=== PATIENT | male | born 1955 ===

== ENCOUNTER 2018-11-14 09:06 | Emergency (ER) | payer OTHER ==
--- NOTE | 2018-11-14 09:40 | C.PDOC ---
History Of Present Illness CC: RA HPI: Patient is a 63 year old male with no past medical history, who presents to the ED with complaints of rash that started 6 days ago. Patient describes the rash has a burning pain that is itching and painful. Patient denies any symptoms of fever, chills, nausea, vomiting, chest pain, palpitations, shortness of breath, abdominal pain. Chief Complaint (Nursing): Abnormal Skin Integrity History Per: Patient History/Exam Limitations: no limitations Onset/Duration Of Symptoms: Days Current Symptoms Are (Timing): Still Present Location Of Injury: Right: Back, Chest Quality Of Symptoms: Painful, Itching Severity: Moderate Pain Scale Rating Of: 4 Recent travel outside of the [place]: No Additional History Per: Patient Past Medical History Family History: States: Unknown Family Hx - Social History Hx Alcohol Use: No Hx Substance Use: No - Immunization History Hx Tetanus Toxoid Vaccination: No Hx Influenza Vaccination: No Hx Pneumococcal Vaccination: No Review Of Systems Constitutional: Negative for: Fever, Chills, Weakness, Malaise, Weight loss Eyes: Negative for: Pain, Vision Change ENT: Negative for: Ear Pain, Ear Discharge Cardiovascular: Negative for: Chest Pain, Palpitations, Orthopnea Respiratory: Negative for: Shortness of Breath, Hemoptysis, SOB with Excertion Gastrointestinal: Negative for: Nausea, Vomiting, Abdominal Pain, Diarrhea, Constipation Skin: Positive for: Rash (dermatomal area, T3-T4 ) Neurological: Negative for: Weakness, Numbness, Confusion, Seizures, Dizziness Physical Exam - Physical Exam Appears: No Acute Distress Skin: Normal Color Head: Atraumatic, Normacephalic Eye(s): bilateral: EOMI Neck: Normal ROM Chest: Symmetrical, Other Cardiovascular: Rhythm Regular (Cluster blisters in T3-T4 dermatomal area ) Respiratory: Normal Breath Sounds, No Decreased Breath Sounds, No Accessory Muscle Use, No Rales, No Rhonchi, No Stridor, No Wheezing, No Plerual Rub Gastrointestinal/Abdominal: Normal Exam, Bowel Sounds, Soft, No Tenderness Back: Other (Cluster blister in the T4 dermatomal area ) Neurological/Psych: Oriented x3, Normal Speech, Normal Cognition, Normal Cranial Nerves Disposition Discussed With : Nima Mccullough - Disposition Referrals: [facility] [Provider Group] Disposition: HOME/ ROUTINE Disposition Time: 09:47 Condition: FAIR Additional Instructions: Please discharge patient home Please take acyclovir 800mg PO 5 times per day for 10 days, that is 1 tablet 5 times per day Please apply bacitracin cream BID to affected area Please follow up with [facility] clinic in 1 week for follow up and in order to establish care Please return to the hospital if symptoms worsen Please take care Prescriptions: Acyclovir [Zovirax] 800 mg PO 5XD #50 tablet Bacitracin Ointment [Bacitracin] 30 gm TOP BID #2 tube Instructions: Shingles (DC) Forms: [facility] (Kyrgyz), Gen Discharge Inst Belgian, [facility] (Belgian) - Clinical Impression Clinical Impression: Herpes zoster
[2018-11-14 10:08] VITALS: BP 116/85; PULSE 84; RESP 16; O2SAT 98
== END 2018-11-14 10:07 | disposition home or self-care (01) ==
LOC: C.ER 09:06
DX: B02.9 Zoster without complications (principal)